=== PATIENT | female | born 1935 | race Caucasian/White ===

== ENCOUNTER 2020-10-22 07:50 | Day surgery (SDCO) | payer MEDICARE, OTHER ==
[~2020-10-22] VITALS: Ht 154.9 cm; Wt 41.9 kg
[2020-10-22 14:14] LABS: BILIRUBIN NEGATIVE (NEGATIVE); BLOOD NEGATIVE Ery/uL (NEGATIVE); CLARITY CLEAR (CLEAR); COLOR YELLOW (YELLOW); GLUCOSE (U) NORMAL (NORMAL); LEUKOCYTES NEGATIVE Leu/uL (NEGATIVE); NITRITE NEGATIVE (NEGATIVE); PROTEIN NEGATIVE (NEGATIVE); UROBILINOGEN 0.2 mg/dL (0.2-1.0)
[2020-10-22] MEDS ORDERED: NORVASC5 MG PO (17:24)
--- NOTE | 2020-10-23 05:50 | NUR ---
PT REFUSED LAB WORK. STILL ANXIOUS AND UPSET R/T DEMENTIA. WILL LET [facility] KNOW TO TRY AGAIN DURING THE DAY.
[2020-10-23 10:25] LABS: HCT 36.1 % (37.0-47.0); HGB 12.7 g/dl (12.5-16.0); MCH 31.3 pg (25.0-31.0); MCHC 35.2 g/dL (32.0-36.0); MCV 88.9 fL (78.0-100.0); MPV 8.7 fL (6.0-9.5); RBC 4.06 M/uL (4.20-5.40); RDW 12.8 % (11.5-14.0); WBC 10.9 K/uL (4.0-10.5)
[2020-10-23 10:47] LABS: BUN/CREAT RATIO (CALC) 25.8 RATIO; CREATININE 0.66 mg/dL (0.51-0.95); POTASSIUM 3.7 mmol/L (3.5-5.1)
[2020-10-24] MEDS ORDERED: TRAMADOL HCL50 MG PO (13:49)
[2020-10-24] MEDS ORDERED: ACETAMINOPHEN325 MG PO (13:49)
--- NOTE | 2020-10-24 14:54 | NUR ---
10/24/20 Ms. Hand lives alone. She does not use any DME. Family has been providing meals, lawn care, and housekeeping. Family voiced concerns r/t cognitive declines. They are interested in a zarina placement. [facility] will not accept patient because her mobility doesn't require acute zarina. [facility] has accept patient for admission on . A report was given to MS HEATHER Cruz. Please call report to: [phone] and ask for the 400 abebe. Fax the DS to: [phone]. [facility] can accept in the afternoon. Hina Mccray, daughter / POA has agreed to transport.
--- NOTE | 2020-10-25 11:34 | NUR ---
10/25/20 Maryellen Cota ([phone]) at [facility] reported to be unable to accept Ms. Hand because a family member called [facility] to report patient to be a wanderer. Ms. Cota stated they do not have a secure unit. Ms. Cota was advised that Ms. Hand has not displayed wandering behavior while hospitalized. Ms. Cota was advised that the family would be requested to call her. The above mentioned was relayed to Consuelo Thapa, daughter. - Ms. Cota has called [facility]. Ms. oCta spoke with family and will be accepting Ms. Hand. - A report was given to Dr. Gonzalez and Nancy MS RN.
--- NOTE | 2020-10-25 11:39 | NUR ---
PT GOING TO [facility], BY WAY OF AUTO WITH FAMILY. IV REMOVED.
--- NOTE | 2020-10-25 11:54 | NUR ---
CALLED REPORT TO [facility] [place], TALKED TO ANGELICA ROMERO AT [facility], REPORT GIVEN. AND PAPER WORK FAX TO [place] AND ALSO SENT WITH PT TO [place]. IV REMOVED AND PT GOING BY CAR WITH DAUGHTER.
== END 2020-10-25 14:02 ==
LOC: FER 07:50 → FMS 16:08
PROVIDERS: Emergency Medicine; ADMIT Hospitalist
DX: S22.070A Wedge compression fracture of T9-T10 vertebra, initial encounter for closed fracture (principal); S22.080A Wedge compression fracture of T11-T12 vertebra, initial encounter for closed fracture; I10 Essential (primary) hypertension; Z20.822 Contact with and (suspected) exposure to COVID-19; W01.0XXA Fall on same level from slipping, tripping and stumbling without subsequent striking against object, initial encounter
CPT/HCPCS: 36415; 72128; 72131; 73502; 80048; 81003; 97162; 97165; 97530-GP; 97535; G0378; J1630; U0002